=== PATIENT | male | born 1975 | race Caucasian/White ===

== ENCOUNTER 2024-05-27 02:54 | Inpatient (IN) | payer OTHER, SELFPAY ==
[2024-05-26 20:12] VITALS: BP 131/90
[2024-05-26 20:33] LABS: % Basophils 0.7 % (0-2); % Eosinophils 1.7 % (0-6); % Immature Granulocytes 0.2 % (0-0.5); % Monocytes 8.2 % (1.7-9.3); % Neutrophils 67.2 % (42.2-75.2); Absolute Basophils 0.1 10^3/uL (0-0.2); Absolute Eosinophils 0.2 10^3/uL (0-0.7); Absolute Lymphocytes 1.9 10^3/uL (1.2-3.4); Absolute Monocytes 0.7 10^3/uL (0.1-0.6); Absolute Neutrophils 5.8 10^3/uL (1.4-6.5); Hematocrit 42.3 % (39.0-52.0); Hemoglobin 15.2 g/dL (13.0-18.0); Mean Corp Hgb Conc. 35.9 g/dL (33.0-37.0); Mean Corpuscular Hgb 30.1 pg (27.0-31.0); Mean Corpuscular Volume 83.8 fL (80.0-94.0); Mean Platelet Volume 9.5 fL (7.4-10.4); Nucleated Red Blood Cells % 0 % (-); Platelet Count 308 10^3/uL (130-400); Red Blood Cell Count 5.05 10^6/uL (4.70-6.10); Red Cell Dist. Width 11.4 % (11.5-14.5); White Blood Cell Count 8.6 10^3/uL (4.8-10.8)
[2024-05-26 20:44] LABS: ALT (SGPT) 22 U/L (0-50); AST (SGOT) 28 U/L (17-59); Albumin 4.4 g/dl (3.5-5.0); Alkaline Phosphatase 87 U/L (38-126); Blood Urea Nitrogen 45 mg/dl (9-20); Calcium 9.6 mg/dl (8.4-10.2); Carbon Dioxide 30 mmol/L (22-30); Chloride 101 mmol/L (98-107); Glucose 104 mg/dl (70-99); Potassium 4.5 mmol/L (3.5-5.1); Sodium 140 mmol/L (135-145); Total Bilirubin 0.7 mg/dl (0.2-1.3); Total Protein 8.1 g/dl (6.3-8.2); eGFR 38.35
[2024-05-26 22:22] VITALS: BP 143/86
--- NOTE | 2024-05-26 23:56 | ED.GENMED ---
History of Present Illness
General
Chief Complaint: Flank Pain
Source: patient
Exam Limitations: none
Time Seen by Provider: 05/26/24 23:01
History of Present Illness
History of Present Illness:
Patient with right flank pain for days. History of kidney stones. Has been taking Advil. No fever chills nausea vomiting. No urinary symptoms. No burning or frequency
Past History
Past History
ED Past Medical History: Other (Kidney stones)
ED Past Surgical History: None
Social History
Tobacco: Non-smoker
Alcohol: None
Review of Systems
Review of Systems
All Other Systems: Not applicable
Constitutional: Denies fever or chills
Phy Exam
Physical Exam
Physical Exam:
GENERAL: Alert and oriented in no apparent distress
EYE: Orbits normal.
NECK: Supple, no significant adenopathy.
ENT: Pharynx without erythema
CARDIAC: Regular rate and rhythm without any obvious murmurs.
LUNGS: Clear breath sounds,normal
ABDOMEN: Soft, without focal tenderness or distention. No CVA tenderness
NEUROLOGICAL: Alert and oriented , grossly non-focal
SKIN: Warm and dry, no rash or lesion, no discoloration, skin intact.
MUSCULOSKELETAL: No edema,no deformity.Good color
PSYCH: Normal and appropriate interaction.
Course
Orders/Labs/Results
Orders:
Orders
05/26/24 20:20
Complete Blood Count/With Diff Urgent
Comprehensive Metabolic Panel Urgent
05/26/24 23:51
Urinalysis Urgent
Date Specimen was Collected: 05/26/24
Time Specimen was Collected: 20:55
Urine Microscopic Urgent
Date Specimen was Collected: 05/26/24
Time Specimen was Collected: 20:55
05/27/24 00:00
CT Abd/pel Without Iv Or Oral Urgent
Reason For Exam: Right flank pain history of stones
CR Chest - 2 Views Urgent
Reason For Exam: cough
05/27/24 01:04
IV Insert/Care/Rem.- Treatment PRN
0.9% Sodium Chloride 1000 ml [Nss] 1,000 ml IV BOLUS
Abnormal Lab Results
05/26/24 05/26/24
20:20 23:51
RDW 11.4 L %
(11.5-14.5)
Absolute Monos (auto) 0.7 H 10^3/uL
(0.1-0.6)
BUN 45 H mg/dl
(9-20)
Creatinine 2.1 H mg/dL
(0.7-1.3)
Glucose 104 H mg/dl
(70-99)
Urine Occult Blood 4+ A
(Negative)
Urine RBC 7-10 A /HPF
(0-2)
05/26/24 20:20
05/26/24 20:20
Vital Signs
Initial and Last Documented VS:
Initial Vital Signs
Temp Pulse Resp BP Pulse Ox
98.7 F 89 16 131/90 97
05/26/24 20:12 05/26/24 20:12 05/26/24 20:12 05/26/24 20:12 05/26/24 20:12
Last Documented Vital Signs
Temp Pulse Resp BP Pulse Ox
98.7 F 88 16 128/79 97
05/26/24 20:12 05/27/24 00:36 05/27/24 00:36 05/27/24 00:36 05/27/24 00:36
MDM/Problems Addressed
Differential Diagnosis Includes:
Mild renal insufficiency. Nothing to support an infectious etiology. Possibly related to his NSAID use. CT scan pending
*Critical Care Note
Total Time (30-74mins, 75-104mins- exclusive of procedures): Not Applicable
Data Reviewed
Review of Other/Old Records Reveals: Labs, Records and Testing
Update Note
Update Note:
Discussed with urology and hospitalist. Multiple obstructing right kidney stones with renal insufficiency. Admit for definitive management
ED Attending Note
-
Portions of this chart may have been created with voice recognition software.� Occasional wrong word or��sound alike� substitutions may have occurred due to the inherent limitations of voice recognition software.
Discharge Plan
Departure
Prescriptions:
No Action
cholecalciferol (vitamin D3) [Vitamin D3] 125 mcg (5,000 unit) Tablet
125 mcg PO MOFR
Xyosted 100 mg/0.5 mL Auto-Injector
100 mg SC QWEEK
Fish Oil
1,500 mg PO DAILY
Humira 40 mg/0.8 mL Syringe Kit
40 mg SC MONTHLY
Patient Comments:
sometimes gets it twice a month
allopurinol 100 mg tablet
100 mg PO DAILY Qty: 30 5RF
potassium citrate [Urocit-K 15] 15 mEq tablet extended release
15 meq PO BID Qty: 60 5RF
phenazopyridine [Pyridium] 100 mg tablet
100 mg PO BID Qty: 60 0RF
Referrals:
Axel Helton DO [Family Provider] -
Interventions
Interventions:
*Risk Screen - Suicide Last Done: 05/26/24 20:13
*General Assessment Last Done: 05/26/24 22:21
*Neglect/Abuse Screening Last Done: 05/26/24 20:13
*ED- Fall Risk Assessment Last Done: 05/26/24 22:21
*ED COVID-19 Vaccine History Last Done: 05/26/24 22:21
HT-Zympof-Yeuyadvkci Assessment Last Done: 05/26/24 22:44
ED-Male Genitourinary Assessment Last Done: 05/26/24 22:44
Discharge Date and Time
Print Language: [place]
[2024-05-27] VITALS (13 sets, daily range): BP systolic 121–157; BP diastolic 78–91; BMI 28.6
[2024-05-27 00:02] LABS: Urine Albumin Negative (Neg - Trace); Urine Bilirubin Negative (Negative); Urine Character Clear (Clear); Urine Color Yellow; Urine Glucose Negative (Negative); Urine Ketone Negative (Negative); Urine Leukocyte Negative (Negative); Urine Nitrite Negative (Negative); Urine Occult Blood 4+ (Negative); Urine Specific Gravity 1.015 (<1.030); Urine Urobilinogen Negative (Neg - 1+)
[2024-05-27 00:18] LABS: Urine Squamous Cell None seen /LPF (Few); Urine White Cell 0-2 /HPF (0-5)
[2024-05-27] MEDS: NSS 1000 IV ×2 (01:43→04:13)
--- NOTE | 2024-05-27 02:46 | HPS.HSE ---
Family Physician
-
Family Physician: Axel Helton DO
Chief Complaint
-
R Flank Pain
History of Present Illness
Patient is a 48y M with PMH significant for nephrolithiasis who presents to ED complaining of R flank pain x several days. Patient has had multiple prior episodes of kidney stones and has required cysto / stents three times in the past. Patient
denies any fevers / chills, N/V/D, etc.
Medical History
Past Medical History
Past Medical History: Reports Other
Additional Past Medical History:
Uric Acid Nephrolithiasis
Rheumatoid Arthritis
Past Surgical History: Reports Other
Additional Past Surgical History:
Cyst / Stent x 3
Social History
Tobacco: Non-smoker
Alcohol: None
Drug: None
Family History
Family History: Not pertinent
Allergies / Home Medications
Allergies reflects when Allergies were last updated in [facility].
Home Medications with original date entered in [facility]
Allergy/Medication List:
Allergies
Allergy/AdvReac Type Severity Reaction Status Date / Time
No Known Allergies Allergy Verified 12/07/22 07:44
Home Medications
potassium citrate 15 mEq (1,620 mg) tablet,extended release (Urocit-K 15) 15 meq PO BID #60 tabs 11/29/22
Review of Systems
-
History Source: Patient
A 12 point ROS was completed and negative except as noted: Yes
Constitutional: Denies Fever or Chills
Respiratory: Denies Cough or Trouble Breathing
Cardiac: Denies Chest Pain or Palpitations
Abdomen/GI: Denies Abdominal Pain, Nausea, Vomiting or Diarrhea
: Reports Flank Pain and Bleeding; Denies Dysuria or Frequency
Musculoskeletal: Denies Joint Pain or Edema
Neurological: Denies Dizzy or Headache
Psych: Denies Depression or Anxiety
Physical Exam
Vital Signs
Vital Signs
Temp Pulse Resp BP Pulse Ox
98.7 F 88 16 128/79 97
05/26/24 20:12 05/27/24 00:36 05/27/24 00:36 05/27/24 00:36 05/27/24 00:36
Physical Exam
General: Other (48y M in no acute distress.)
HEENT: Moist mucous membranes and PERRLA
Respiratory: Clear; No Wheezes, Rales or Rhonchi
Cardiac: S1/S2 and Regular Rhythm; No Murmur
GI: Soft, Non Tender, Non Distended and Normal Bowel Sounds
Genito-urinary: Costovertebral angle tend (Right)
Musculoskeletal: No Clubbing, No Cyanosis and No Edema
Neuro: AO x 3
Laboratory Results
-
05/26/24 20:20
05/26/24 20:20
Laboratory Results
Total Bilirubin 0.7 mg/dl (0.2-1.3) 05/26/24 20:20
AST 28 U/L (17-59) 05/26/24 20:20
ALT 22 U/L (0-50) 05/26/24 20:20
Alkaline Phosphatase 87 U/L (38-126) 05/26/24 20:20
Impression/Plan
-
A/P: Patient is a 48y M with PMH significant for kidney stones who presents to ED complaining of R flank pain x several days.
Right Ureterolithiasis
Obstructive Uropathy secondary to the above
JEREMIAS secondary to the above
- Admit for further evaluation and treatment.
- Urology consulted.
- NPO for probable OR / cysto in the AM.
- Supportive care, pain control, IVFs, etc.
- Patient frustrated with recurrent stones. Declines allopurinol due to fear of adverse effects.
- Follow for improvement in renal function with alleviation of obstruction / stones.
Rheumatoid Arthritis
- Not on any treatment at this time. No active symptoms.
DVT Prophylaxis: SCDs
Code Status: Full
--- NOTE | 2024-05-27 05:27 | PTCARENOTE ---
Pt arrived from ED 0400. Pt was able to ambulate to bed. VSS. no complaints of pain. IVF infusing. First set of CHG wipes completed. oriented to room and call navarro. bed locked and in lowest position
[2024-05-27 07:33] LABS: Hematocrit 39.3 % (39.0-52.0); Mean Corp Hgb Conc. 35.6 g/dL (33.0-37.0); Mean Corpuscular Hgb 29.7 pg (27.0-31.0); Mean Corpuscular Volume 83.3 fL (80.0-94.0); Mean Platelet Volume 9.6 fL (7.4-10.4); Platelet Count 249 10^3/uL (130-400); Red Blood Cell Count 4.72 10^6/uL (4.70-6.10); Red Cell Dist. Width 11.4 % (11.5-14.5); White Blood Cell Count 6.5 10^3/uL (4.8-10.8)
[2024-05-27 07:54] LABS: Blood Urea Nitrogen 43 mg/dl (9-20); Calcium 9.2 mg/dl (8.4-10.2); Carbon Dioxide 26 mmol/L (22-30); Chloride 103 mmol/L (98-107); Estimated Creatinine Clearance 48 ml/min; Glucose 91 mg/dl (70-99); Potassium 4.4 mmol/L (3.5-5.1); Sodium 142 mmol/L (135-145); eGFR 43.24
--- NOTE | 2024-05-27 10:18 | W.PN.HOSP.TC ---
Addendum entered and electronically signed by Yobani Lema DO 05/27/24 13:20:
I spoke with urology. Successful stenting of right ureter. Okay for discharge as per Dr. Martinez.
Resume allopurinol on discharge. Discussed with the patient. He was not taking prior to admission due to concerns over side effects, although he was not experiencing side effects.
I explained to patient that the benefits of allopurinol outweigh the risks for this patient.
Urology feels that most of his stones are uric acid in nature and therefore allopurinol will help prevent recurrent stones.
Continue potassium citrate on discharge. Urology requesting antibiotics as a prophylactic measure on discharge.
Original Note:
Today's Communication/Plan
-
Cystoscopy today
Assessment / Plan
Assessment / Plan
Gen-AAOx3, NAD
HEENT-NC, AT, anicteric, clear oral mm
Neck-supple
CV-reg, no M, +S1/S2
Lungs-clear B/L
Abd-soft, NT, ND
Ext-no edema
Musculoskeletal-no cyanosis, clubbing
Skin-warm and dry
Neuro-grossly non-focal
Psych-calm, cooperative
Obstructive uropathy/JEREMIAS -CT scan demonstrates moderate right hydronephrosis, 1.8 cm obstructing stone noted in the right mid ureter. Multiple nonobstructing right lower pole intrarenal calculi. Creatinine 2.1 on admission, 1.9 today. Previous
creatinine 1.2 in 2022. Baseline unknown.
I spoke with Dr. Martinez of urology. He feels that most of the stones are uric acid in nature. Patient has not been compliant with allopurinol due to concerns over potential side effects.
Spoke with patient extensively to resume allopurinol on discharge.
Continue potassium citrate.
Await cystoscopy today and and attempt at stent placement in the right ureter, discussed with urology. If able to place stents then patient can be discharged later today as per urology.
If unable to place then may need percutaneous nephrostomy tube placement by IR tomorrow.
No signs or symptoms of sepsis.
Rheumatoid arthritis - stable. Not on meds.
Full code
Anticipated Discharge: Within 24 hours
Subjective/Interval History
-
Date of Service: May 27, 2024
Patient seen and examined. Denies pain.
Objective Data
-
Labs:
Laboratory Results
05/27/24
05:40
WBC 6.5
Hgb 14.0
Hct 39.3
Plt Count 249
Sodium 142
Potassium 4.4
Chloride 103
Carbon Dioxide 26
BUN 43 H
Creatinine 1.9 H
Glucose 91
Calcium 9.2
Vital Signs:
Vital Signs
Temp Pulse Resp BP Pulse Ox
97.9 F 88 16 121/87 98
05/27/24 07:35 05/27/24 07:35 05/27/24 07:35 05/27/24 07:35 05/27/24 07:35
I&O
05/26/24 05/27/24 05/28/24
06:59 06:59 06:59
Intake Total 200 / 200
Balance 200 / 200
Review of Systems
-
History Source: Patient
All other systems: Reviewed and negative
--- NOTE | 2024-05-27 10:23 | W.PN.URO.CBU ---
Today's Communication / Plan
-
to op room
Assessment / Plan
-
Difficult volume rt ureteral column of stones Goal today is to try and place stent and if able extract or manipulate these obstructing stones Will most likely need second procedure and also left side
Diagnosis
-
Date of Service: May 27, 2024
-
Patient Diagnosis:h/o uric acid stones Unilaterally stopped allopurinol as read about potential side effects. Now 2.5 cmm cigar shaped stones mid rt ureter and others Creatinine 1 to 2.1 no fever chills
Post Op Day:
Subjective
-
mild rt colic
Objective
-
Vital Signs
Temp Pulse Resp BP Pulse Ox
97.9 F 88 16 121/87 98
05/27/24 07:35 05/27/24 07:35 05/27/24 07:35 05/27/24 07:35 05/27/24 07:35
Intake and Output
05/26/24 05/27/24 05/28/24
06:59 06:59 06:59
Intake Total 200 / 200
Balance 200 / 200
Intake:
Oral fluids 0 / 0
IV fluids (Total) 200 / 200
Other:
Number of approximated MODERATE 2
amounts of urine
Laboratory Results
05/27/24 05:40
05/27/24 05:40
Review of Systems
-
: Flank Pain
Physical Exam
-
General - well developed, well nourished, no acute distress
Chest - clear bilaterally
Abdomen - soft, non-tender, positive bowel sounds, no CVAT, no incisional pain or distention
Genitalia - normal
Rectal - normal
Skin - warm & dry with no rash
Neuro - AOx3, no motor deficits
Extremities - no clubbing, no cyanosis, no edema
Incision - clean, dry
Dressing - clean, dry, intact
Counseling
-
ancef
Care Review
Data Reviewed
Discussed with: Hospitalist and Nursing
CT Scan: Image Pers Reviewed
Total Time Spent with Patient (in minutes): 60
--- NOTE | 2024-05-27 13:02 | W.SUR.POST ---
Surgical Immediate Post Op
Note
Pre Op Diagnosis: yolanda obstructive uropathy from 2.5 cmm collection rt mid uretral stones ansd 2 aditonal rlp stones
Post Op Diagnosis: same
Procedure Performedrt uretroscoy complex lasr lithotripsy with basket extraction multiple stones and rlp stobnes , basket extraction, rt rgp:
Primary Surgeon: colten
Secondary Surgeons:
Anesthesia: dr lassiter general
Estimated Blood Loss: 2cc
Fluids: nss
Drains/Shunts: 6 fr 24 cc jj stent
Specimens/Cultures: stones
Doppler/Duplex/Angio (Y/N):
Complications: o
Operative Findings: multple stonres total length 2.5 cmm rt mid uret with impction ansd 2 additionll stones rlp
--- NOTE | 2024-05-27 13:18 | W.DS.TRANS ---
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
-
Discharge Instructions:
Discharge Diagnosis/Procedures Obstructive uropathy, acute kidney injury,
kidney stones
Diet Regular
Activity As tolerated
Driving Restrictions As prior to admission
Bathing Restrictions None
Blood Work BMP in 3 days with your primary care doctor
Instructions:
Stand-Alone Forms:
Changes to Home Medications: No
Discharge Medications:
DC Medications w/original date entered in [employer]
potassium citrate 15 mEq (1,620 mg) tablet,extended release (Urocit-K 15) 15 meq PO BID #60 tabs 11/29/22
allopurinol 100 mg tablet 100 mg PO DAILY #30 tabs 05/27/24
ciprofloxacin HCl 500 mg tablet 500 mg PO BID #6 tabs 05/27/24
phenazopyridine 200 mg tablet 200 mg PO TIDPRN PRN dysurria #15 tabs 05/27/24
tamsulosin 0.4 mg capsule 0.4 mg PO DAILY #10 caps 05/27/24
Home Medication Changes
Pending Results: No
[2024-05-27] MEDS: Pyridium 200 MG PO ×2 (13:47→16:07)
[2024-05-27] MEDS: FLOMAX 0.4 MG PO (13:47)
--- NOTE | 2024-05-27 15:40 | CM ---
Initial assessment completed
Lives with his in an apartment; 5STE/FF set-up
Independent, employed FT, drives
DME - none
SNF/HH - no past hx
Has ride at d/c
PCP - Axel Helton
Pharm - [facility]
Plan - home no needs
[2024-05-27] MEDS: TYLENOL 650 MG PO (16:08)
== END 2024-05-27 17:00 | disposition home or self-care (01) | DRG 661 ==
LOC: 2 SOUTH 02:54
PROVIDERS: Emergency Medicine; Radiology Diagnostic Radiology; ADMITTING PHYSICIAN Hospitalist; ATTENDING PHYSICIAN Hospitalist; CONSULT PHYSICIAN Specialist; EMERGENCY PHYSICIAN Emergency Medicine; FAMILY PHYSICIAN Family Medicine
PROC: 0TC38ZZ Extirpation of Matter from Right Kidney Pelvis, Via Natural or Artificial Opening Endoscopic (ICD-10-PCS; 2024-05-27)
PROC: BT1DYZZ Fluoroscopy of Right Kidney, Ureter and Bladder using Other Contrast (ICD-10-PCS; 2024-05-27)
PROC: 0TC68ZZ Extirpation of Matter from Right Ureter, Via Natural or Artificial Opening Endoscopic (ICD-10-PCS; 2024-05-27)
PROC: 0T768DZ Dilation of Right Ureter with Intraluminal Device, Via Natural or Artificial Opening Endoscopic (ICD-10-PCS; 2024-05-27)
DX: N13.2 Hydronephrosis with renal and ureteral calculous obstruction (principal); N17.9 Acute kidney failure, unspecified; M06.9 Rheumatoid arthritis, unspecified; Z91.148 Patient's other noncompliance with medication regimen for other reason; Z79.899 Other long term (current) drug therapy
CPT/HCPCS: 71046; 74176; 74420; 76000; 80048; 80053; 81003; 81015; 82365; 85025; 85027; 96360; 99285; A4300; C1894; C2617

== ENCOUNTER 2024-05-27 19:08 | Emergency (ER) | payer OTHER, SELFPAY ==
[2024-05-27 19:11] VITALS: BP 179/103
--- NOTE | 2024-05-27 19:19 | ED.GENMED ---
History of Present Illness
General
Chief Complaint: Male Genito-Urinary Symptoms
Source: patient
Exam Limitations: none
Time Seen by Provider: 05/27/24 19:14
History of Present Illness
History of Present Illness:
Patient returns with inability to urinate. Had kidney stone removal today. Severe pain. Passing clots prior to discharge
Past History
Past History
ED Past Medical History: Other (Kidney stones)
ED Past Surgical History: None
Social History
Tobacco: Non-smoker
Alcohol: None
Review of Systems
Review of Systems
All Other Systems: Not applicable
Constitutional: Denies fever
Phy Exam
Physical Exam
Physical Exam:
GENERAL: Alert and oriented. In significant discomfort. Hunched over the side of the bed
EYE: Orbits normal.
NECK: Supple
CARDIAC: Regular rate and rhythm without any obvious murmurs.
LUNGS: Mild hyperventilation
ABDOMEN: Soft, suprapubic fullness.
NEUROLOGICAL: Alert and oriented , grossly non-focal
SKIN: Warm and dry
PSYCH: Normal and appropriate interaction.
Course
Orders/Labs/Results
Orders:
Orders
05/27/24 19:17
CBI- Treatment PRN
Solution: nss
IV Insert/Care/Rem.- Treatment PRN
HYDROmorphone [Dilaudid] 0.5 mg IV NOW STA
05/27/24 19:23
Lidocaine 2% [Lidocaine Uro-Jet 2%] 1 syringe .ROUTE .STK-MED ONE
05/27/24 19:27
Lidocaine 2% [Lidocaine Uro-Jet 2%] 1 syringe TOPICAL NOW STA
05/27/24 19:46
HYDROmorphone [Dilaudid] 0.5 mg .ROUTE .STK-MED ONE
05/27/24 20:00
HYDROmorphone [Dilaudid] 0.5 mg IV NOW STA
05/27/24 20:32
Lidocaine 2% [Lidocaine Uro-Jet 2%] 1 syringe .ROUTE .STK-MED ONE
05/27/24 20:41
0.9% Sodium Chloride 1000 ml [Nss] 1,000 ml IV BOLUS
05/27/24 21:45
Ciprofloxacin HCl [Cipro] 500 mg PO NOW STA
Tamsulosin [Flomax] 0.4 mg PO NOW STA
Vital Signs
Initial and Last Documented VS:
Initial Vital Signs
Temp Pulse Resp BP Pulse Ox
98.4 F 123 30 179/103 99
05/27/24 19:11 05/27/24 19:11 05/27/24 19:11 05/27/24 19:11 05/27/24 19:11
Last Documented Vital Signs
Temp Pulse Resp BP Pulse Ox
98.4 F 71 18 122/71 97
05/27/24 19:11 05/27/24 21:00 05/27/24 21:00 05/27/24 21:00 05/27/24 21:00
MDM/Problems Addressed
Differential Diagnosis Includes:
Urinary retention. Possibly secondary clots. Will put a three-way and irrigate pain management. Urology updated
*Critical Care Note
Total Time (30-74mins, 75-104mins- exclusive of procedures): Not Applicable
ED Attending Note
-
Portions of this chart may have been created with voice recognition software.� Occasional wrong word or��sound alike� substitutions may have occurred due to the inherent limitations of voice recognition software.
Discharge Plan
Departure
Patient Disposition: Home (Routine Discharge)
Date of Disposition: 05/27/24
Time of Disposition: 21:53
Patient with high blood pressure during this ER visit?: Yes
Discharge Problem:
Urinary retention, Recent right ureteral kidney stones
Instructions: How to Care for Your Decker Catheter, Male, BLOOD PRESSURE
Prescriptions:
New
tamsulosin [Flomax] 0.4 mg capsule
0.4 mg PO DAILY Qty: 14 0RF
hydrocodone-acetaminophen 5-300 mg tablet
1 tab PO Q6H PRN (Reason: Pain) Qty: 10 0RF
No Action
potassium citrate [Urocit-K 15] 15 mEq tablet extended release
15 meq PO BID Qty: 60 5RF
phenazopyridine 200 mg Tablet
200 mg PO TIDPRN PRN (Reason: dysurria) Qty: 15 0RF
tamsulosin 0.4 mg Capsule
0.4 mg PO DAILY Qty: 10 0RF
ciprofloxacin HCl 500 mg tablet
500 mg PO BID Qty: 6 0RF
allopurinol 100 mg tablet
100 mg PO DAILY Qty: 30 0RF
Referrals:
Axel Helton PA-C [Family Provider] -
Activity Restrictions/Additional Instructions:
Call the urologist first thing tomorrow morning for close follow-up
Interventions
Interventions:
*Risk Screen - Suicide Last Done: 05/27/24 21:00
*General Assessment Last Done: 05/27/24 19:11
*Neglect/Abuse Screening Last Done: 05/27/24 22:05
*ED- Fall Risk Assessment Last Done: 05/27/24 20:00
*ED COVID-19 Vaccine History Last Done: 05/27/24 20:00
*Nursing Disposition Last Done: 05/27/24 22:05
ED-Male Genitourinary Assessment Last Done: 05/27/24 21:00
Discharge Date and Time
Discharge Date/Time: 05/27/24 22:05
Print Language: DOMINICAN
[2024-05-27] MEDS: DILAUDID 0.5 MG IV ×2 (19:25→20:00)
[2024-05-27] MEDS: LIDOCAINE URO-JET 2% 1 SYRINGE TOPICAL (19:27)
[2024-05-27 21:00] VITALS: BP 122/71
[2024-05-27] MEDS: NSS 1000 IV (21:00)
[2024-05-27] MEDS: FLOMAX 0.4 MG PO (22:15)
[2024-05-27] MEDS: CIPRO 500 MG PO (22:15)
== END 2024-05-27 22:05 | disposition home or self-care (01) ==
LOC: EMR 19:08
PROVIDERS: EMERGENCY PHYSICIAN Emergency Medicine; FAMILY PHYSICIAN Physician Assistant Medical
DX: R33.9 Retention of urine, unspecified (principal); R10.9 Unspecified abdominal pain; R03.0 Elevated blood-pressure reading, without diagnosis of hypertension; Z87.442 Personal history of urinary calculi
CPT/HCPCS: 51702; 96374; 96376; 99284